=== PATIENT | male | born 1965 | race African-American/Black ===

== ENCOUNTER 2016-06-23 17:18 | Emergency (ER) | payer OTHER ==
[~2016-06-23] VITALS: Ht 182.9 cm; Wt 97.5 kg
[~2016-06-23 17:18] MED LIST: ADVAIR HFA 1112 UNIT INH; PREDNISONE 10 M10 M1; SINGULAIR 10 MG10 M1 PO; VENTOLIN HFA INH8 GM; ZYRTEC10 M2 PO
[2016-06-23] MEDS ORDERED: PREDNISONE 20 M20 MG PO (18:33)
[2016-06-23] MEDS ORDERED: PROVENTIL HFA6.7 G1 INH (18:37)
[2016-06-23] MEDS ORDERED: ADVAIR HFA 45MC1 AER INH (18:48)
== END 2016-06-23 19:02 | disposition home or self-care (01) ==
LOC: ER 17:18
DX: J45.901 Unspecified asthma with (acute) exacerbation (principal); E78.00 Pure hypercholesterolemia, unspecified; Z87.891 Personal history of nicotine dependence

== ENCOUNTER 2017-05-10 16:53 | Emergency (ER) | payer OTHER ==
[~2017-05-10] VITALS: Ht 182.9 cm; Wt 99.3 kg
--- NOTE | ~2017-05-10 | EKG ---
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
[~2017-05-10 16:53] MED LIST changes: +ADVAIR HFA 45MC1 AER INH; +PREDNISONE 20 M20 MG PO; +PROVENTIL HFA6.7 G1 INH
[2017-05-10] MEDS ORDERED: CEFUROXIME250 MG PO (17:04)
[2017-05-10] MEDS ORDERED: TYLENOL SINUS1 EAC5 PO (17:29)
[2017-05-10] MEDS ORDERED: IBUPROFEN 200200 M1 PO (17:29)
[2017-05-10 17:31] LABS: HEMOGLOBIN 14.5 gm/dL (14.0-18.0); MCH 27.7 pg (26.0-34.0); MCHC 33.8 g/dL (28.0-37.0); MCV 81.8 fL (80.0-100.0); RBC 5.25 mil/uL (4.50-6.00); RDW 13.3 % (10.5-14.5); WBC 12.6 thou/uL (4.0-11.0)
[2017-05-10 17:40] LABS: ANION GAP 8 mmol/L (7-16); BUN 15 mg/dL (7-18); CALCIUM 9.9 mg/dL (8.5-10.1); CHLORIDE 102 mmol/L (98-107); CO2 29 mmol/L (21-32); CREATININE 1.3 mg/dL (0.7-1.3); GLUCOSE 130 mg/dL (74-106); POTASSIUM 3.6 mmol/L (3.5-5.1); SODIUM 139 mmol/L (136-145)
[2017-05-10 17:49] LABS: TROPONIN-I < 0.04 ng/mL (<0.06)
[2017-05-10] MEDS ORDERED: CLEOCIN HCL150 MG PO (18:40)
[2017-05-10] MEDS ORDERED: NORCO 10-325 T1 EACH PO (18:41)
== END 2017-05-10 20:25 | disposition home or self-care (01) ==
LOC: ER 16:53
PROVIDERS: Physician Assistant
DX: R68.84 Jaw pain (principal); K08.89 Other specified disorders of teeth and supporting structures; R20.2 Paresthesia of skin; E78.00 Pure hypercholesterolemia, unspecified; J45.909 Unspecified asthma, uncomplicated; Z87.891 Personal history of nicotine dependence